=== PATIENT | female | born 1980 | race Caucasian/White ===

== ENCOUNTER 2017-07-29 11:02 | Emergency (ER) | payer OTHER ==
[~2017-07-29] VITALS: Ht 172.7 cm; Wt 104.6 kg
[~2017-07-29 11:02] MED LIST: CITA40TA12 PO; LEVO100T PO; LORA10TA44 PO; OMEP20CA9 PO
[2017-07-29 11:13] VITALS: TEMP 36.6; Ht 172.7 cm; Wt 104.6 kg
[2017-07-29] MEDS ORDERED: ZNTT/150 PO (11:37)
[2017-07-29] MEDS ORDERED: SODIUM CHLORIDE 0.9% 1000ML 1,000 ML IV STA (12:03)
--- NOTE | 2017-07-29 12:39 | DIAGNOSTIC IMAGING REPORT ---
CHEST ONE VIEW PORTABLE CLINICAL HISTORY: cough dyspnea COMPARISON STUDY: No previous studies for comparison. FINDINGS: The bones soft tissues and hemidiaphragms are normal. The cardiomediastinal silhouette is normal. The lungs are clear. The pulmonary vasculature is normal. IMPRESSION: Negative chest. The above report was generated using voice recognition software. It may contain grammatical, syntax or spelling errors. Electronically signed by: Shan Clayton M.D. 07/29/2017 12:38 PM Dictated Date/Time: 07/29/2017 12:38 PM
[2017-07-29 12:44] LABS: BASO % 0.5 %; BASO ABS # 0.03 K/uL (0-0.2); EOS % 3.7 %; EOS ABS # 0.24 K/uL (0-0.5); HEMATOCRIT 41.7 % (37-47); HEMOGLOBIN 14.4 g/dL (12.0-16.0); IG# 0.01 K/uL (0.00-0.02); LYMPH % 43.2 %; LYMPH ABS # 2.81 K/uL (1.2-3.4); MEAN CELL VOLUME 90.8 fL (80-100); MEAN CORPUSCULAR HEMOGLOBIN 31.4 pg (25-34); MEAN CORPUSCULAR HGB CONC 34.5 g/dl (32-36); MEAN PLATELET VOLUME 10.3 fL (7.4-10.4); MONO % 7.1 %; MONO ABS # 0.46 K/uL (0.11-0.59); NEUT % 45.3 %; NEUT ABS # 2.96 K/uL (1.4-6.5); PLATELET COUNT 226 K/uL (130-400); RED CELL DISTRIBUTION WIDTH CV 12.4 % (11.5-14.5); RED CELL DISTRIBUTION WIDTH SD 40.8 fL (36.4-46.3); WHITE BLOOD COUNT 6.51 K/uL (4.8-10.8)
[2017-07-29 12:51] LABS: INFLUENZA B ANTIGEN Neg for Influ B (NEG)
[2017-07-29 13:04] LABS: ALBUMIN 3.6 gm/dl (3.4-5.0); ALT/SGPT 22 U/L (12-78); AST/SGOT 10 U/L (15-37); BLOOD UREA NITROGEN 16 mg/dl (7-18); CALCIUM 9.1 mg/dl (8.5-10.1); CARBON DIOXIDE 27 mmol/L (21-32); CREATININE 1.04 mg/dl (0.60-1.20); GLUCOSE 83 mg/dl (70-99); LIPASE 81 U/L (73-393); POTASSIUM 3.9 mmol/L (3.5-5.1); SODIUM 137 mmol/L (136-145)
[2017-07-29 13:09] LABS: ALKALINE PHOSPHATASE 58 U/L (45-117); TOTAL PROTEIN 7.1 gm/dl (6.4-8.2)
[2017-07-29 13:53] VITALS: BP 111/82; PULSE 69; O2SAT 100
--- NOTE | 2017-07-29 16:59 | EMERGENCY ROOM VISIT NOTE ---
History Report prepared by Janine: Omar Dial Under the Supervision of: Dr. Chinmay Meyers D.O. First contact with patient: 11:44 Chief Complaint: FLU LIKE SX Stated Complaint: DIZZY;COUGH;UPSET STOMACHE;BODY ACHES History of Present Illness The patient is a 36 year old female who presents to the Emergency Room with complaints of persistent flu-like symptoms that started 3 days ago. She states that her was diagnosed with the flu, and her son was diagnosed with strep. The patient notes that her symptoms have included diffuse muscle aches, dizziness, a cough with intermittent productiveness, a runny nose with yellow phlegm, nausea, and a bit of diarrhea. She notes that her dizziness worsens with movement, but is still there intermittently just laying there. The patient adds that she has had a headache. She says that she started to have some abdominal pain 45 minutes ago. She denies any sore throat, vomiting, ear pain, or pain or burning with urination. She states that her immunizations are up to date. The patient says that she is currently having her period. Patient denies diabetes, hypertension, hyperlipidemia, CAD, history of sudden at a young age, and smoking. Source of History: patient Onset: 3 days ago Position: other (global - flu-like symptoms) Quality: other ( has flu) Timing: other (persistent) Associated Symptoms: + headache, + sorethroat, + cough, + nausea, + abdominal pain, + diarrhea, No vomiting, No urinary symptoms Note: Associated symptoms: Dizziness. Muscle aches. Denies ear pain. Review of Systems See HPI for pertinent positives & negatives. A total of 10 systems reviewed and were otherwise negative. Past Medical & Surgical Medical Problems: (1) No chronic diseases present Family History Diabetes mellitus FH: gallbladder disease FH: heart disease Kidney stones Social History Smoking Status: Current Every Day Smoker Smokeless Tobacco Use: No Alcohol Use: none Marital Status: in relationship Current/Historical Medications Scheduled Levothyroxine Sodium (Synthroid), 100 MCG PO DAILY Omeprazole (Prilosec), 20 MG PO DAILY Ranitidine (Zantac), 150 MG PO HS Scheduled PRN Loratadine (Allergy), 10 MG PO DAILY PRN for ALLERGIC REACTION Allergies Coded Allergies: Azithromycin (Unverified Allergy, Severe, HIVES, 07/29/17) Penicillins (Unverified Allergy, Severe, ANAPHYLAXIS, 07/29/17) Aspirin (Unverified Allergy, Unknown, thins blood, 07/29/17) Physical Exam Vital Signs Date Time Temp Pulse Resp B/P (MAP) Pulse Ox O2 Delivery O2 Flow Rate FiO2 07/29/17 13:53 69 18 111/82 100 Room Air 07/29/17 13:06 69 18 119/67 100 Room Air 07/29/17 11:13 36.6 92 18 111/75 98 Room Air Physical Exam GENERAL: Sitting up in bed, with a dry non-productive cough, in no acute distress talking in full sentences EYE EXAM: normal conjunctiva. OROPHARYNX: no exudate, no erythema, lips, buccal mucosa, and tongue normal and mucous membranes are moist NECK: supple, no nuchal rigidity, no adenopathy, non-tender, negative Brudzinski 's LUNGS: Clear to auscultation. Normal chest wall mechanics HEART: no murmurs, S1 normal and S2 normal ABDOMEN: abdomen soft, non-tender, normo-active bowel sounds, no masses, no rebound or guarding. BACK: Back is symmetrical on inspection and there is no deformity, no midline tenderness, no CVA tenderness. SKIN: no rashes and no bruising UPPER EXTREMITIES: upper extremities are grossly normal. LOWER EXTREMITIES: Calves equal bilateral. NEURO EXAM: Normal sensorium, cranial nerves II-XII grossly intact, normal speech, no gross weakness of arms, no gross weakness of legs. Medical Decision & Procedures ER Provider Diagnostic Interpretation: X-ray results as stated below per my review and the radiologist's interpretation : CHEST ONE VIEW PORTABLE CLINICAL HISTORY: cough dyspnea COMPARISON STUDY: No previous studies for comparison. FINDINGS: The bones soft tissues and hemidiaphragms are normal. The cardiomediastinal silhouette is normal. The lungs are clear. The pulmonary vasculature is normal. IMPRESSION: Negative chest. The above report was generated using voice recognition software. It may contain grammatical, syntax or spelling errors. Electronically signed by: Shan Clayton M.D. 07/29/2017 12:38 PM Dictated Date/Time: 07/29/2017 12:38 PM Laboratory Results 07/29/17 12:20 Red Blood Count 4.59, Mean Corpuscular Volume 90.8, Mean Corpuscular Hemoglobin 31.4, Mean Corpuscular Hemoglobin Concent 34.5, Mean Platelet Volume 10.3, Neutrophils (%) (Auto) 45.3, Lymphocytes (%) (Auto) 43.2, Monocytes (%) (Auto) 7.1, Eosinophils (%) (Auto) 3.7, Basophils (%) (Auto) 0.5, Neutrophils # (Auto) 2.96, Lymphocytes # (Auto) 2.81, Monocytes # (Auto) 0.46, Eosinophils # (Auto) 0.24, Basophils # (Auto) 0.03 07/29/17 12:20 Test 07/29/17 11:30 07/29/17 12:20 07/29/17 13:50 Influenza Type A Antigen POS for Influ A (NEG) Influenza Type B Antigen Neg for Influ B (NEG) White Blood Count 6.51 K/uL (4.8-10.8) Red Blood Count 4.59 M/uL (4.2-5.4) Hemoglobin 14.4 g/dL (12.0-16.0) Hematocrit 41.7 % (37-47) Mean Corpuscular Volume 90.8 fL (80-100) Mean Corpuscular Hemoglobin 31.4 pg (25-34) Mean Corpuscular Hemoglobin Concent 34.5 g/dl (32-36) Platelet Count 226 K/uL (130-400) Mean Platelet Volume 10.3 fL (7.4-10.4) Neutrophils (%) (Auto) 45.3 % Lymphocytes (%) (Auto) 43.2 % Monocytes (%) (Auto) 7.1 % Eosinophils (%) (Auto) 3.7 % Basophils (%) (Auto) 0.5 % Neutrophils # (Auto) 2.96 K/uL (1.4-6.5) Lymphocytes # (Auto) 2.81 K/uL (1.2-3.4) Monocytes # (Auto) 0.46 K/uL (0.11-0.59) Eosinophils # (Auto) 0.24 K/uL (0-0.5) Basophils # (Auto) 0.03 K/uL (0-0.2) RDW Standard Deviation 40.8 fL (36.4-46.3) RDW Coefficient of Variation 12.4 % (11.5-14.5) Immature Granulocyte % (Auto) 0.2 % Immature Granulocyte # (Auto) 0.01 K/uL (0.00-0.02) Anion Gap 5.0 mmol/L (3-11) Est Creatinine Clear Calc Drug Dose 94.6 ml/min Estimated GFR () 80.0 Estimated GFR (Non- 69.1 BUN/Creatinine Ratio 15.5 (10-20) Calcium Level 9.1 mg/dl (8.5-10.1) Total Bilirubin 0.8 mg/dl (0.2-1) Direct Bilirubin < 0.1 mg/dl (0-0.2) Aspartate Amino Transf (AST/SGOT) 10 U/L (15-37) Alanine Aminotransferase (ALT/SGPT) 22 U/L (12-78) Alkaline Phosphatase 58 U/L (45-117) Troponin I < 0.015 ng/ml (0-0.045) Total Protein 7.1 gm/dl (6.4-8.2) Albumin 3.6 gm/dl (3.4-5.0) Lipase 81 U/L (73-393) Urine Color YELLOW Urine Appearance CLEAR (CLEAR) Urine pH 5.0 (4.5-7.5) Urine Specific [place] 1.018 (1.000-1.030) Urine Protein NEG (NEG) Urine Glucose (UA) NEG (NEG) Urine Ketones NEG (NEG) Urine Occult Blood NEG (NEG) Urine Nitrite NEG (NEG) Urine Bilirubin NEG (NEG) Urine Urobilinogen NEG (NEG) Urine Leukocyte Esterase NEG (NEG) Urine WBC (Auto) 0 /hpf (0-5) Urine RBC (Auto) 0-4 /hpf (0-4) Urine Hyaline Casts (Auto) 1-5 /lpf (0-5) Urine Epithelial Cells (Auto) >30 /lpf (0-5) Urine Bacteria (Auto) NEG (NEG) Urine Test NEG (NEG) Laboratory results per my review. Medications Administered Medications (Trade) Dose Ordered Sig/Michelle Route Start Time Stop Time Status Last Admin Dose Admin Sodium Chloride 1,000 ml @ 999 mls/hr Q1H1M STAT IV 07/29/17 12:03 07/29/17 13:03 DC 07/29/17 12:28 999 MLS/HR ECG Indication: nausea Rate (beats per minute): 67 Rhythm: sinus rhythm Findings: no ectopy, other (poor baseline inferior) ED Course ED COURSE: Vital signs were reviewed and showed normal vitals. The patients medical record was reviewed The above diagnostic studies were performed and reviewed. ED treatments and interventions as stated above. 1155: The patient was evaluated in room A10. A complete history and physical examination was performed. 1203: Ordered NSS 1000 ml @ 999 mls/hr IV. 1345: Upon reevaluation, the patient is resting.I discussed my findings with the patient and she understands and agrees with the treatment plan. Based on the patients age, coexisting illnesses, exam and lab findings the decision to treat as an outpatient was made. The patient remained stable while under my care. The patient appeared well at the time of discharge. Medical Decision Differential Diagnosis includes but is not limited to dehydration, stroke, anemia, hypoglycemia, hyponatremia, hypernatremia, urinary tract infection, pneumonia, bronchitis, sepsis, gastroenteritis, additional abdominal pathology, metabolic abnormalities and infections. Patient is a 36-year-old female who presents to ER diffuse myalgias, cough, runny nose and nausea. Rapid strep was negative. has influenza. Patient's completely neurologically intact exam. Vitals are stable. CBC all BMP, LFTs, bilirubin, troponin and lipase is unremarkable. EKG was nondiagnostic. I favor the chest discomfort is likely secondary to influenza. Symptoms have been present for the past 3 days. She is out of the window for Tamiflu. She is updated bedside. She is discharged follow-up with PCP follow- up fluids. Discussed with Pt concerning signs and symptoms to watch out for. Pt was instructed to follow up with their PCP and discussed with the patient their option to return to the ED at anytime for persistent or worsening symptoms. The appropriate anticipatory guidance and out-patient management, including indications for return to the emergency department, were explained at length to the patient and understood. Medication Reconcilliation Current Medication List: was personally reviewed by me Blood Pressure Screening Patient's blood pressure: Normal blood pressure Impression Primary Impression: Influenza A Scribe Attestation The scribe's documentation has been prepared under my direction and personally reviewed by me in its entirety. I confirm that the note above accurately reflects all work, treatment, procedures, and medical decision making performed by me. Departure Information Dispostion Home / Self-Care Referrals No Doctor, Assigned (PCP) Maurisio Mcgregor M.D. Patient Instructions [facility], Oseltamivir capsules Additional Instructions Please follow up with your primary care doctor with in the next 24 hours. Any worsening of your symptoms, please return to the ED immediately. This includes any fevers greater than 100.4, worsening pain, chest pain, shortness breath, persistent nausea, vomiting, unable to eat or drink, or any other concerning signs or symptoms from your standpoint. Please take Tylenol or Motrin as needed for pain.
== END 2017-07-29 13:59 | disposition home or self-care (01) ==
LOC: C.EDB 11:03 → C.EDA 13:59
DX: J09.X2 Influenza due to identified novel influenza A virus with other respiratory manifestations (principal); F17.200 Nicotine dependence, unspecified, uncomplicated; Z79.899 Other long term (current) drug therapy; Z83.3 Family history of diabetes mellitus; Z83.79 Family history of other diseases of the digestive system; Z82.49 Family history of ischemic heart disease and other diseases of the circulatory system; Z84.1 Family history of disorders of kidney and ureter